=== PATIENT | male | born 1985 | race Caucasian/White ===

== ENCOUNTER 2021-12-23 12:49 | Emergency (ER) | payer OTHER ==
[~2021-12-23] VITALS: Ht 177.8 cm; Wt 82.2 kg
--- NOTE | 2021-12-23 13:26 | PHYS DOC ---
Past History Past Surgical History: No Surgical History Alcohol Use: None General Adult EDM: Chief Complaint: RIB PAIN HPI: HPI: Patient is a 36-year-old male coming in for left lateral rib pain. Patient notes he woke up with the pain yesterday. Is worse with coughing or taking a deep breath. Patient denies any trauma or recent falls. Has not had increasing cough. Patient is a current smoker. Denies any abdominal pain Review of Systems: Review of Systems: All other systems within normal limits except for as noted in the HPI Allergies: Allergies: Allergies Coded Allergies Type Severity Reaction Last Updated Verified No Known Drug Allergies 12/23/21 No Physical Exam: PE: Constitutional: Well developed, well nourished, no acute distress, non-toxic appearance. [] HENT: Normocephalic, atraumatic, bilateral external ears normal, nose normal. [] Eyes: PERRLA, conjunctiva normal, no discharge. [] Neck: No rigidity, supple, no stridor. [] Cardiovascular: Regular rate and rhythm, brisk cap refill [] Lungs & Thorax: Non labored symmetric respirations, no tachypnea or respiratory distress. Tenderness over left lower lateral ribs, left lower lobe rhonchi [] Abdomen: Soft, nondistended, no splenomegaly. Skin: Warm, dry, no erythema, no rash. [] Back: Unremarkable Extremities: No deformities, range of motion grossly intact, no lower extremity edema [] Neurologic: Alert and oriented X 3, no focal deficits noted. [] Psychologic: Affect normal, judgement normal, mood normal. [] Current Patient Data: Vital Signs: Vital Signs Date Time Temp Pulse Resp B/P (MAP) Pulse Ox O2 Delivery O2 Flow Rate FiO2 12/23/21 12:57 98.3 78 18 128/90 (103) 96 Room Air EKG: EKG: [] Radiology/Procedures: Radiology/Procedures: [address] [address] IMAGING REPORT Signed PATIENT: HEIDI RUSH ACCOUNT: [id number] : 1985 LOCATION: ER AGE: 36 SEX: M EXAM STATUS: REG ER ORD. PHYSICIAN: EL MENSAH MD REASON: left rib pain PROCEDURE: CT CHEST WO CONTRAST PQRS Compliance Statement: One or more of the following individualized dose reduction techniques were utilized for this examination: 1. Automated exposure control 2. Adjustment of the mA and/or kV according to patient size 3. Use of iterative reconstruction technique CT THORAX WO Clinical Indication: Reason: left rib pain / Comparison: None. TECHNIQUE: Helical CT imaging of the chest is performed without IV contrast. Findings: There is no adenopathy in the chest. There are calcified left hilar lymph nodes. The great vessels are normal caliber. The cardiac size is normal, no pericardial effusion. There is no coronary calcium. Respiratory motion artifact limits evaluation of the lungs. No pleural abnormality is seen. The central airways are clear. There are calcified granulomas in the left upper lobe. There is minimal scarring or atelectasis in the lingula, posterior right lower lobe, and medial right middle lobe. The visualized upper abdomen is unremarkable. A nondisplaced left rib fracture could be obscured due to respiratory motion. No acute fracture is seen. The thoracic spine alignment is maintained. IMPRESSION: No acute left rib abnormality is identified. Evaluation of the ribs and lungs is limited due to respiratory motion artifact. Electronically signed by: Nayan Ambrose MD (12/23/2021 1:41 PM) [id number] DICTATED AND SIGNED BY: NAYAN AMBROSE MD DATE: 12/23/21 1334 CC: EL MENSAH MD; PCP,NO ~MTH0 0 [] Heart Score: C/O Chest Pain: N/A Risk Factors: Risk Factors: DM, Current or recent (<one month) smoker, HTN, HLP, family history of CAD, obesity. Risk Scores: Score 0 - 3: 2.5% MACE over next 6 weeks - Discharge Home Score 4 - 6: 20.3% MACE over next 6 weeks - Admit for Clinical Observation Score 7 - 10: 72.7% MACE over next 6 weeks - Early Invasive Strategies Course & Med Decision Making: Course & Med Decision Making Exam complicated by motion artifact on CT. Artifact shows inconsistency on the left ribs. The site is at the exact same place where patient is experiencing pain. We will treat as if it is a rib fracture Dragparam Disclaimer: [place] Disclaimer: This electronic medical record was generated, in whole or in part, using a voice recognition dictation system. Departure Departure: Impression: Primary Impression: Fracture of rib of left side Disposition: HOME / SELF CARE / HOMELESS Condition: STABLE Referrals: PCP,NO (PCP) Patient Instructions: Incentive Spirometer, Rib Fracture Scripts Lidocaine (Lidocaine PATCH ) 1 Each Adh..patch 1 EACH TP BID for FOR LOCAL PAIN for 5 Days, #10 PATCH REMOVE AFTER 12 HOURS Prov: EL MENSAH MD 12/23/21 EL MENSAH MD Dec 23, 2021 13:26
--- NOTE | 2021-12-23 13:43 | RAD ---
PQRS Compliance Statement: One or more of the following individualized dose reduction techniques were utilized for this examinat ion: 1. Automated exposure control 2. Adjustment of the mA and/or kV according to patient size 3. Use of iterative reconstruction technique CT THORAX WO Clinical Indication: Reason: left rib pain / Comparison: None. TECHNIQUE: Helical CT imaging of the chest is performed without IV contrast. Findings: There is no adenopathy in the chest. There are calcified left hilar lymph nodes. The great vessels ar e normal caliber. The cardiac size is normal, no pericardial effusion. There is no coronary calcium. Respiratory motion artifact limits evaluation of the lungs. No pleural abnormality is seen. The centr al airways are clear. There are calcified granulomas in the left upper lobe. There is minimal scarrin g or atelectasis in the lingula, posterior right lower lobe, and medial right middle lobe. The visualized upper abdomen is unremarkable. A nondisplaced left rib fracture could be obscured due to respiratory motion. No acute fracture is se en. The thoracic spine alignment is maintained. IMPRESSION: No acute left rib abnormality is identified. Evaluation of the ribs and lungs is limited due to respi ratory motion artifact. Electronically signed by: Nayan Ambrose MD (12/23/2021 1:41 PM) [id number]
[2021-12-23] MEDS ORDERED: ACET1TAB33 PO (14:30)
[2021-12-23] MEDS ORDERED: LIDO700A21 TP (14:30)
[2021-12-23 14:44] VITALS: BP 120/88
[2021-12-23] MEDS ORDERED: LIDOCAINE (700MG/PATCH) PATCH. TD SCH (15:00)
[2021-12-23] MEDS ORDERED: PATCH REMOVAL. MC SCH (21:00)
== END 2021-12-23 14:58 | disposition home or self-care (01) ==
LOC: ER 12:49
DX: S22.32XA Fracture of one rib, left side, initial encounter for closed fracture (principal); X58.XXXA Exposure to other specified factors, initial encounter; Y93.89 Activity, other specified; Y92.89 Other specified places as the place of occurrence of the external cause; Y99.8 Other external cause status
CPT/HCPCS: 71250; 99284